=== PATIENT | male | born 2000 | race Caucasian/White ===

== ENCOUNTER 2020-07-24 09:30 | Emergency (ER) | payer SELFPAY ==
[~2020-07-24 09:30] MED LIST: OMNICEF 300 MG300 MG PO
[2020-07-24] MEDS ORDERED: IBUPROFEN600 MG PO (10:43)
== END 2020-07-24 11:08 | disposition home or self-care (01) ==
LOC: ER1 09:30
DX: S93.601A Unspecified sprain of right foot, initial encounter (principal); W10.9XXA Fall (on) (from) unspecified stairs and steps, initial encounter
CPT/HCPCS: 73610; 73630; 99283

== ENCOUNTER 2020-12-29 11:26 | Emergency (ER) | payer BC ==
[~2020-12-29 11:26] MED LIST changes: +IBUPROFEN600 MG PO
[2020-12-29] MEDS ORDERED: IBUPROFEN600 MG PO (13:01)
== END 2020-12-29 13:18 | disposition home or self-care (01) ==
LOC: ER1 11:26
DX: S83.412A Sprain of medial collateral ligament of left knee, initial encounter (principal); F17.290 Nicotine dependence, other tobacco product, uncomplicated; X58.XXXA Exposure to other specified factors, initial encounter
CPT/HCPCS: 73562; 99283